=== PATIENT | female | born 1965 | race Caucasian/White ===

== ENCOUNTER → 2017-06-19 | Outpatient (CLI) | payer BC ==
--- NOTE | 2017-06-19 10:12 | KCIC ---
EXAM: Pelvic sonogram. HISTORY: Pelvic pressure and weight loss. TECHNIQUE: Transabdominal and transvaginal sonographic imaging of the pelvis was performed. COMPARISON: None. FINDINGS: The uterus measures 6.5 x 2.6 x 3.4 cm. There is a 1.3 x 1.1 x 0.9 cm hypoechoic lesion within the left superior uterine fundus, likely a fibroid. There is trace fluid and suspected microcalcifications within the endocervical canal. The endometrial stripe measures 1.2 mm. The right ovary measures 1.5 x 1.3 x 1.7 cm. The left ovary measures 2.3 x 0.8 x 2.0 cm. There is normal blood flow within both ovaries. There is no pelvic free fluid. IMPRESSION: 1. Suspected 1.3 cm uterine fibroid. 2. Nonspecific trace fluid and suspected microcalcifications within the endocervical canal. The endometrial stripe is thin. 3. Unremarkable ovaries. Electronically signed by: Darlyn Mendiola MD (06/19/2017 10:08 AM) [id number]
--- NOTE | 2017-06-19 10:17 | KCIC ---
HISTORY: Postmenopausal female presents for osteoporosis screening. COMPARISON: None. TECHNIQUE: Dual energy x-ray absorptiometry of the lumbar spine and the left hip was performed. Calculation of bone mineral density based on standard deviations above or below the expected young adult normal value (T-score) was completed. FINDINGS: The average bone mineral density in the 1st through 4th lumbar vertebrae is 0.986 g/cmxcm, corresponding with a T-score of -0.6. The average total bone mineral density in the left hip is 0.931 g/cmxcm, corresponding with a T-score of -0.1. IMPRESSION: Normal bone mineral density. Note: Definitions established by the [employer] Organization: 1. Normal: T-score is -1.0 or above. 2. Osteopenia: T-score is between -1.0 and -2.5 . 3. Osteoporosis: T-score is -2.5 or below. Electronically signed by: Darlyn Mendiola MD (06/19/2017 10:13 AM) [id number]
== END | disposition home or self-care (01) ==
LOC: KCIC US 08:39
PROVIDERS: ATTEND Obstetrics & Gynecology
DX: Z13.820 Encounter for screening for osteoporosis (principal); R63.4 Abnormal weight loss; Z78.0 Asymptomatic menopausal state; M85.88 Other specified disorders of bone density and structure, other site
CPT/HCPCS: 76830; 76856; 77080